=== PATIENT | male | born 1955 | race African-American/Black ===

== ENCOUNTER 2016-11-25 08:42 | Emergency (ER) | payer BC ==
[~2016-11-25] VITALS: Ht 188 cm; Wt 152.0 kg
[~2016-11-25 08:42] MED LIST: NKM
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
[2016-11-25 09:30] VITALS: BP 136/72
--- NOTE | 2016-11-25 10:50 | Diagnostic Imaging Report ---
Indication: Pain Comparison: None Findings: Two views of the left tibia and fibula were obtained. There is an acute intra-articular fracture of the lateral tibial plateau with mild inferior depression of the plateau floor. There is also involvement of the area of the tibial spine. There is a possible involvement of the medial tibial plateau as well. This the bones are slight osteopenic. There is generalized soft tissue edema involving the left lower extremity, nonspecific in nature. Impression: Acute depressed fracture of the lateral tibial plateau.
--- NOTE | 2016-11-25 10:53 | Diagnostic Imaging Report ---
Indication: Trauma Findings: 2 views of the left femur were obtained. The patient is had extensive surgery in the left medial proximal thigh and groin. The left hip joint is obliterated. There is periosteal thickening of the upper part of the femoral shaft including the head and neck which appear sclerotic. There is no acute fracture involving the femur. Impression: No acute fracture identified. Abnormal bone mineralization with thick periosteal reaction involving the left upper femoral shaft, head and neck. Findings could be on the basis of previous radiation. Also consider chronic osteomyelitis versus tumor infiltration versus Paget's disease. These correlate clinically. Evidence of previous surgery
--- NOTE | 2016-11-25 10:54 | Diagnostic Imaging Report ---
Indication: pain Findings: Single AP view of the pelvis was performed. There is no acute fracture identified. The left hip is abnormal. There is increased sclerosis, accentuated trabecular markings and cortical thickening, high riding position of the femoral head due to softening of the acetabulum and obliteration of the joint space. Surgical clips also noted in this location. The findings could be due to radiation changes. Chronic osteomyelitis or bony tumor involvement is in the differential diagnosis. Please correlate clinically. Impression: No acute injury identified.
[2016-11-25] MEDS ORDERED: Ketorolac 60mg Inj IM ONE (11:00)
[2016-11-25] MEDS ORDERED: Norco 10mg/325mg tab ORAL ONE (11:00)
[2016-11-25] MEDS ORDERED: IBUPROFEN600 MG ORAL (11:03)
[2016-11-25] MEDS ORDERED: NORCO 10-325 T1 EACH ORAL (11:03)
[2016-11-25 11:33] VITALS: BP 159/72
[2016-11-25 11:35] VITALS: BP 136/72
== END 2016-11-25 13:48 | disposition home or self-care (01) ==
LOC: EDBD 08:42 → EMR 09:24
DX: S82.142A Displaced bicondylar fracture of left tibia, initial encounter for closed fracture (principal); V43.52XA Car driver injured in collision with other type car in traffic accident, initial encounter; Y92.9 Unspecified place or not applicable; I89.0 Lymphedema, not elsewhere classified; Z85.9 Personal history of malignant neoplasm, unspecified
CPT/HCPCS: 29530; 72170; 96372; 99284